=== PATIENT | female | born 1960 | race Caucasian/White ===

== ENCOUNTER → 2024-06-18 06:31 | Day surgery (SDC) | payer OTHER, SELFPAY ==
[2024-06-18 10:03] LABS: Glucose - Point of Care 130 mg/dl (70-99)
== END ==
LOC: GI 06:31
PROVIDERS: ATTENDING PHYSICIAN Internal Medicine
DX: Z12.11 Encounter for screening for malignant neoplasm of colon (principal); K57.30 Diverticulosis of large intestine without perforation or abscess without bleeding; D12.2 Benign neoplasm of ascending colon; D12.3 Benign neoplasm of transverse colon; D12.4 Benign neoplasm of descending colon; K44.9 Diaphragmatic hernia without obstruction or gangrene; K21.00 Gastro-esophageal reflux disease with esophagitis, without bleeding; K64.9 Unspecified hemorrhoids; Z86.010 Personal history of colon polyps; Z87.19 Personal history of other diseases of the digestive system
CPT/HCPCS: 45385; 45381; 45380; 43239; 88305; 82962

== ENCOUNTER → 2024-10-15 14:03 | Outpatient (REF) | payer OTHER, SELFPAY | LOC: WDC 14:03 | PROVIDERS: ATTENDING PHYSICIAN Internal Medicine | DX: Z12.31 Encounter for screening mammogram for malignant neoplasm of breast (principal); M81.0 Age-related osteoporosis without current pathological fracture | CPT/HCPCS: 77063; 77067; 77080 ==

== ENCOUNTER 2025-02-03 06:20 | Day surgery (SDC) | payer MEDICARE, OTHER, SELFPAY ==
[2025-02-03 09:56] LABS: Glucose - Point of Care 118 mg/dl (70-99)
== END 2025-02-03 11:34 | disposition home or self-care (01) ==
LOC: GI 06:20
PROVIDERS: ATTENDING PHYSICIAN Internal Medicine
DX: Z12.11 Encounter for screening for malignant neoplasm of colon (principal); D12.0 Benign neoplasm of cecum; D12.3 Benign neoplasm of transverse colon; K63.5 Polyp of colon; K57.30 Diverticulosis of large intestine without perforation or abscess without bleeding; K64.8 Other hemorrhoids; K64.4 Residual hemorrhoidal skin tags; Z86.0101 Personal history of adenomatous and serrated colon polyps; Z98.890 Other specified postprocedural states
CPT/HCPCS: 45385; 45380; 88305; 82962